=== PATIENT | female | born 1960 | race Caucasian/White ===

== ENCOUNTER 2020-09-27 16:51 | Outpatient (CLI) | payer MEDICARE, MEDICAID | END 2020-09-27 16:52 | disposition home or self-care (01) | LOC: COV 16:51 | PROVIDERS: ATTEND Family Medicine | DX: R53.83 Other fatigue (principal); Z20.828 Contact with and (suspected) exposure to other viral communicable diseases ==

== ENCOUNTER 2020-10-25 08:00 | Outpatient (CLI) | payer MEDICARE, MEDICAID ==
--- NOTE | 2020-10-25 10:44 | XRAY Report ---
PROCEDURE: Ankle 3 View RT INDICATIONS: R ANKLE PX TECHNIQUE: 3 views of the ankle were acquired. COMPARISON: 09/27/2020 FINDINGS: Bones: No fracture identified. Diffuse hindfoot and midfoot joint degeneration, with subchondral scle rosis and spurring. There is plantar subluxation of the talus relative to the navicular. Distal Achil les tendon thickening IMPRESSION: Diffuse hindfoot and midfoot joint degeneration with talonavicular subluxation as above Distal Achilles tendon thickening which could be further evaluated with MRI as clinically necessary. Reviewed by: Landen Doherty MD on 10/25/2020 10:43 AM PST Approved by: Landen Doherty MD on 10/25/2020 10:43 AM PST Station ID: [id number]
== END 2020-10-25 23:59 | disposition home or self-care (01) ==
LOC: DI.N 08:00
PROVIDERS: ATTEND Orthopaedic Surgery
DX: M25.571 Pain in right ankle and joints of right foot (principal); M19.071 Primary osteoarthritis, right ankle and foot

== ENCOUNTER 2022-07-04 14:08 | Outpatient (CLI) | payer MEDICARE, MEDICAID ==
--- NOTE | 2022-07-05 10:29 | Mammography Report ---
BILATERAL DIGITAL SCREENING MAMMOGRAM 3D/2D: 07/04/2022 CLINICAL: Routine screening. Comparison is made to exam dated: 04/24/2014 mammogram - [facility]. There are scattered areas of fibroglandular density in both breasts (category b / 25%-50% glandular t issue). No significant masses, calcifications, or other findings are seen in either breast. There has been no significant interval change. IMPRESSION: NEGATIVE There is no mammographic evidence of malignancy. A 1 year screening mammogram is recommended. Based on the Tyrer Cuzick model (a risk assessment model) the patients lifetime risk is 6.9% and her 10 year risk is 2.8%. According to the ACR, ACS, and NCCN guidelines, an annual breast MRI exam odette g with mammogram is recommended if the patients lifetime risk is 20% or greater. This exam was interpreted at Station ID: [id number]. NOTE: For mammograms, a report in lay terms will be sent to the patient. Approximately 15% of breast malignancies will not be visualized mammographically. In the management of a palpable breast mass, a negative mammogram must not discourage biopsy of a clinically suspicious lesion. Electronically Signed By: Salvador Rosa M.D. aty/penrad:07/05/2022 08:36:23 ACR BI-RADS Category 1: Negative 3341F PARENCHYMAL PATTERN: (A) - The breast(s) demonstrate(s) scattered fibroglandular densities. BI-RADS CATEGORY: (1) - 1 RECOMMENDATION: (ANNUAL) - Recommend routine annual screening mammography. [id number] 1 year screening LATERALITY: (B)
== END 2022-07-04 14:09 | disposition home or self-care (01) ==
LOC: DI 14:08
DX: Z12.31 Encounter for screening mammogram for malignant neoplasm of breast (principal)

== ENCOUNTER 2022-08-23 08:15 | Outpatient (CLI) | payer MEDICARE, MEDICAID ==
[2022-08-23 11:51] LABS: BASOPHILS # (AUTO) 0.1 10^3/uL (0.0-0.1); BASOPHILS % (AUTO) 1.2 %; EOSINOPHILS # (AUTO) 0.2 10^3/uL (0.0-0.7); EOSINOPHILS % (AUTO) 3.7 %; HCT - HEMATOCRIT 37.2 % (37.0-47.0); HGB - HEMOGLOBIN 11.4 g/dL (12.0-16.0); LYMPHOCYTES # (AUTO) 1.4 10^3/uL (1.5-3.5); LYMPHOCYTES % (AUTO) 20.9 %; MEAN CORPUSCULAR HEMOGLOBIN 24.4 pg (27.0-31.0); MEAN CORPUSCULAR HGB CONC 30.6 g/dL (32.0-36.0); MEAN CORPUSCULAR VOLUME 79.7 fL (81.0-99.0); MEAN PLATELET VOLUME 9.9 fL (7.9-10.8); MONOCYTES # (AUTO) 0.5 10^3/uL (0.0-1.0); MONOCYTES % (AUTO) 7.5 %; NEUTROPHILS # (AUTO) 4.3 10^3/uL (1.5-6.6); NEUTROPHILS % (AUTO) 66.1 %; PLT - PLATELET COUNT 482 10^3/uL (130-450); RED BLOOD COUNT 4.67 10^6/uL (4.20-5.40); RED CELL DISTRIBUTION WIDTH 15.4 % (12.0-15.0); WHITE BLOOD COUNT 6.6 x10^3/uL (4.8-10.8)
[2022-08-23 12:21] LABS: ALKALINE PHOSPHATASE 78 IU/L (42-121); ALT ALANINE AMINOTRANSFERASE 22 IU/L (10-60); AST ASPARTATE AMINOTRANSFERASE 21 IU/L (10-42); BILIRUBIN,TOTAL 0.8 mg/dL (0.2-1.0); BUN - BLOOD UREA NITROGEN 28 mg/dL (6-20); CALCIUM 10.7 mg/dL (8.5-10.3); CARBON DIOXIDE - CO2 26 mmol/L (21-32); CHLORIDE 104 mmol/L (101-111); CHOL/HDL RATIO 3.2 (<4.4); CHOLESTEROL 155 mg/dL; CREATININE 1.4 mg/dL (0.4-1.0); GFR - MDRD 38 (>89); GLUCOSE 94 mg/dL (70-100); HDL CHOLESTEROL 49 mg/dL; LDL CHOLESTEROL,CALCULATED 96 mg/dL; POTASSIUM 3.9 mmol/L (3.5-5.0); SODIUM 140 mmol/L (135-145); TRIGLYCERIDES 51 mg/dL; VLDL CHOLESTEROL 10 mg/dL
[2022-08-23 12:28] LABS: THYROID STIMULATING HORMONE 2.91 uIU/mL (0.34-5.60)
== END 2022-08-23 08:16 | disposition home or self-care (01) ==
LOC: LAB.N 08:15
PROVIDERS: ATTEND Physician Assistant
DX: R03.0 Elevated blood-pressure reading, without diagnosis of hypertension (principal); Z13.220 Encounter for screening for lipoid disorders; Z13.29 Encounter for screening for other suspected endocrine disorder; E66.9 Obesity, unspecified
CPT/HCPCS: 36415; 80053; 80061; 83721; 84443; 85025

== ENCOUNTER 2022-09-04 08:06 | Outpatient (CLI) | payer MEDICARE, MEDICAID ==
[2022-09-04 12:24] LABS: BILIRUBIN,URINE NEGATIVE (NEGATIVE); GLUCOSE, URINE (UA) NEGATIVE (NEGATIVE); KETONES,URINE (UA) NEGATIVE (NEGATIVE); LEUKOCYTE ESTERASE, URINE LARGE (NEGATIVE); NITRITE,URINE NEGATIVE (NEGATIVE); OCCULT BLOOD,URINE MODERATE (NEGATIVE); PROTEIN,URINE 30 mg/dL (NEGATIVE); UROBILINOGEN,URINE 0.2 (NORMAL) E.U./dL (NORMAL)
[2022-09-04 12:42] LABS: BACTERIA,URINE Few /HPF (None Seen); CLARITY,URINE CLOUDY (CLEAR); SQUAMOUS EPITHELIAL CELL,UR MOD Squamous (<= Few); WBC,URINE >25 /HPF (0-5)
[2022-09-04 12:53] LABS: FERRITIN 5.3 ng/mL (11.0-306.8)
[2022-09-04 14:34] LABS: CREATININE 1.3 mg/dL (0.4-1.0); POTASSIUM 3.7 mmol/L (3.5-5.0)
[2022-09-04 14:35] LABS: CALCIUM 10.6 mg/dL (8.5-10.3)
== END 2022-09-04 08:07 | disposition home or self-care (01) ==
LOC: LAB.N 08:06
PROVIDERS: ATTEND Physician Assistant
DX: R79.89 Other specified abnormal findings of blood chemistry (principal); D64.9 Anemia, unspecified; E83.52 Hypercalcemia
CPT/HCPCS: 36415; 80048; 81001; 82728; 83540; 83970; 84466

== ENCOUNTER 2022-09-14 06:41 | Outpatient (CLI) | payer MEDICARE, MEDICAID ==
--- NOTE | 2022-09-14 10:44 | Ultrasound Report ---
PROCEDURE: Retroperitoneal INDICATIONS: PROTEINURIA TECHNIQUE: Real-time scanning was performed of the retroperitoneal organs, with image documentation. COMPARISON: None. FINDINGS: Kidneys: Kidneys are normal in size. Right kidney measures 9.4 cm long; left kidney measures 9.0 cm long. Right renal cortical thickness is 0.6 cm; left renal cortical thickness is 0.7 cm. There is a 1.1 x 1.0 x 0.8 cm cyst in mid left kidney with mild wall irregularity. No solid masses. No hydrone phrosis, or nephrolithiasis. Pancreas: Visualized portions of the pancreas are sonographically normal. Aorta: Visualized aorta is normal in caliber at 3 cm or less. Iliac arteries: Proximal common iliac arteries are normal in caliber at 2.5 cm or less. IVC: Intrahepatic inferior vena cava is patent. Bladder: Pre-void bladder volume is 384.8 mL. Post-void residual is 124.1 mL. Pre-void images demo nstrate no intraluminal masses or stones. On pre-void images, both ureteral jets are noted with colo r Doppler interrogation. (Of note, ureteral jets may not be detectable in up to 25% of cases due to insufficient differences in specific gravity between ureteral and bladder urine). Miscellaneous: No free abdominal fluid. IMPRESSION: 1. There is bilateral renal cortical thinning compatible with medical renal disease. No renal stones or hydronephrosis. 2. A 1.1 x 1.0 x 0.8 cm mildly complex cyst in the left kidney. Reviewed by: Vanessa Monteiro MD on 09/14/2022 10:43 AM [facility] Approved by: Vanessa Monteiro MD on 09/14/2022 10:43 AM PST Station ID: [id number]
== END 2022-09-14 06:42 | disposition home or self-care (01) ==
LOC: DI 06:41
PROVIDERS: ATTEND Physician Assistant
DX: N28.1 Cyst of kidney, acquired (principal); N26.1 Atrophy of kidney (terminal)

== ENCOUNTER 2022-12-26 15:53 | Outpatient (CLI) | payer MEDICARE, MEDICAID ==
--- NOTE | 2022-12-26 19:48 | XRAY Report ---
PROCEDURE: Ankle 3 View RT INDICATIONS: RIGHT ANKLE PAIN TECHNIQUE: 3 views of the ankle were acquired. COMPARISON: Right ankle radiographs 10/25/2020 FINDINGS: Bones: There is osteopenia. There is dorsal subluxation of the tibiotalar joint that does not appear significantly changed when compared with radiographs from 10/25/2020. 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 No acute fractures. Ankle mortise is normally aligned. No suspicious bony lesions. Soft tissues: Nonspecific soft tissue edema seen surrounding the ankle. IMPRESSION: 1.Dorsal subluxation of the talonavicular joint does not appear significantly changed when compared t o the exam from 10/25/2020. 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 3.Nonspecific diffuse soft tissue edema. Reviewed by: Magen Shannon MD on 12/26/2022 7:46 PM PST Approved by: Magen Shannon MD on 12/26/2022 7:46 PM PST Station ID: [id number]
== END 2022-12-26 15:54 | disposition home or self-care (01) ==
LOC: DI.WOS 15:53
PROVIDERS: ATTEND Physician Assistant Surgical
DX: Q66.6 Other congenital valgus deformities of feet (principal); S93.01XA Subluxation of right ankle joint, initial encounter

== ENCOUNTER 2023-01-04 07:35 | Outpatient (CLI) | payer MEDICARE, MEDICAID ==
[2023-01-04 12:33] LABS: CALCIUM 10.9 mg/dL (8.5-10.3); CREATININE 1.1 mg/dL (0.4-1.0); PHOSPHORUS 3.3 mg/dL (2.5-4.6); POTASSIUM 3.8 mmol/L (3.5-5.0)
[2023-01-04 13:17] LABS: CREATININE,URINE 79.8 mg/dL; PROTEIN/CREATININE RATIO,URINE 0.7 (<=0.2)
== END 2023-01-04 07:36 | disposition home or self-care (01) ==
LOC: LAB.N 07:35
PROVIDERS: ATTEND Internal Medicine Nephrology
DX: N05.9 Unspecified nephritic syndrome with unspecified morphologic changes (principal); E83.30 Disorder of phosphorus metabolism, unspecified; R80.9 Proteinuria, unspecified
CPT/HCPCS: 36415; 80048; 82570; 84100; 84156

== ENCOUNTER 2023-01-11 09:20 | Outpatient (CLI) | payer MEDICARE, MEDICAID ==
[2023-01-15 16:08] LABS: ALBUMIN 3.3 g/dL (2.9-4.4); ALPHA-1-GLOBULIN 0.3 g/dL (0.0-0.4); ALPHA-2-GLOBULIN 0.8 g/dL (0.4-1.0); BETA GLOBULIN 1.1 g/dL (0.7-1.3); GAMMA GLOBULIN 1.3 g/dL (0.4-1.8); GLOBULIN TOTAL 3.5 g/dL (2.2-3.9); IMMUNOGLOBULIN A (IGA) 206 mg/dL (87-352); IMMUNOGLOBULIN G (IGG) 1204 mg/dL (586-1602); IMMUNOGLOBULIN M (IGM) 171 mg/dL (26-217); M-SPIKE Not Observed g/dL (Not Observed); PROTEIN TOTAL 6.8 g/dL (6.0-8.5)
== END 2023-01-11 09:21 | disposition home or self-care (01) ==
LOC: LAB 09:20
PROVIDERS: ATTEND Internal Medicine Nephrology
DX: N25.81 Secondary hyperparathyroidism of renal origin (principal); E67.3 Hypervitaminosis D; D47.2 Monoclonal gammopathy
CPT/HCPCS: 36415; 82306; 82784; 83970; 84155; 84165; 86334

== ENCOUNTER 2023-05-21 08:32 | Outpatient (CLI) | payer MEDICARE, MEDICAID ==
[2023-05-21 12:42] LABS: BASOPHILS # (AUTO) 0.1 10^3/uL (0.0-0.1); BASOPHILS % (AUTO) 0.9 %; EOSINOPHILS # (AUTO) 0.2 10^3/uL (0.0-0.7); EOSINOPHILS % (AUTO) 3.4 %; HCT - HEMATOCRIT 40.1 % (37.0-47.0); HGB - HEMOGLOBIN 11.4 g/dL (12.0-16.0); LYMPHOCYTES # (AUTO) 1.7 10^3/uL (1.5-3.5); LYMPHOCYTES % (AUTO) 24.4 %; MEAN CORPUSCULAR HEMOGLOBIN 22.7 pg (27.0-31.0); MEAN CORPUSCULAR HGB CONC 28.4 g/dL (32.0-36.0); MEAN CORPUSCULAR VOLUME 79.7 fL (81.0-99.0); MEAN PLATELET VOLUME 11.4 fL (7.9-10.8); MONOCYTES # (AUTO) 0.7 10^3/uL (0.0-1.0); MONOCYTES % (AUTO) 10.4 %; NEUTROPHILS # (AUTO) 4.1 10^3/uL (1.5-6.6); NEUTROPHILS % (AUTO) 60.5 %; PLT - PLATELET COUNT 441 10^3/uL (130-450); RED BLOOD COUNT 5.03 10^6/uL (4.20-5.40); RED CELL DISTRIBUTION WIDTH 16.5 % (12.0-15.0); WHITE BLOOD COUNT 6.8 x10^3/uL (4.8-10.8)
[2023-05-21 13:07] LABS: CALCIUM 10.4 mg/dL (8.5-10.3); CREATININE 1.1 mg/dL (0.6-1.3); POTASSIUM 4.2 mmol/L (3.5-4.5)
== END 2023-05-21 08:33 | disposition home or self-care (01) ==
LOC: LAB.N 08:32
PROVIDERS: ATTEND Internal Medicine Nephrology
DX: N05.9 Unspecified nephritic syndrome with unspecified morphologic changes (principal); D70.9 Neutropenia, unspecified; D63.1 Anemia in chronic kidney disease
CPT/HCPCS: 36415; 80048; 85025

== ENCOUNTER 2024-06-02 08:45 | Outpatient (CLI) | payer MEDICARE, MEDICAID ==
--- NOTE | 2024-06-02 16:12 | XRAY Report ---
PROCEDURE: Tib/Fib LT INDICATIONS: PAIN IN LEFT LOWER LIMB TECHNIQUE: 2 views of the tibia and fibula were acquired. COMPARISON: Ankle x-ray 12/26/2022. FINDINGS: Bones: Severe osteopenia limits evaluation of the osseous structures. Grossly no fracture or subluxa tion seen. Calcaneus cannot be evaluated in this study. Soft tissues: 5 mm soft tissue calcification of the posterior calf IMPRESSION: 1. No acute osseous abnormality seen.. 2. A 5 mm soft tissue calcification of the posterior calf possibly related to prior trauma. Radiopaqu e foreign body is less likely. Reviewed by: Jag King MD on 06/02/2024 4:11 PM PDT Approved by: Jag King MD on 06/02/2024 4:11 PM PDT Station ID: [id number]
--- NOTE | 2024-06-02 16:29 | XRAY Report ---
PROCEDURE: Ankle 3+V LT INDICATIONS: ANKLE PAIN, LEFT TECHNIQUE: 2 views of the ankle were acquired. COMPARISON: None. FINDINGS: Bones: Severe osteopenia. No acute fracture or subluxation identified. Ankle mortise appears intact. Soft tissues: Soft tissue swelling of the lateral ankle. Soft tissue calcification projects over the posterior ankle. This could be the result of old trauma. Radiopaque foreign body is less likely. IMPRESSION: Severe osteopenia somewhat limiting evaluation of osseous structures with no acute fracture discernib le. Severe soft tissue swelling of the lateral ankle. Reviewed by: Jag King MD on 06/02/2024 4:28 PM PDT Approved by: Jag King MD on 06/02/2024 4:28 PM PDT Station ID: [id number]
--- NOTE | 2024-06-02 16:35 | XRAY Report ---
PROCEDURE: Foot 1-2V LT INDICATIONS: FOOT PAIN, LEFT TECHNIQUE: 2views of the foot were acquired. COMPARISON: None. FINDINGS: Bones: Severe osteopenia limits evaluation of osseous structures. No acute fracture subluxation ident ified. Soft tissues: Diffuse soft tissue swelling of the foot. IMPRESSION: Severe osteopenia. No acute fracture subluxation seen. Diffuse soft tissue swelling of the foot. Reviewed by: Jag King MD on 06/02/2024 4:34 PM PDT Approved by: Jag King MD on 06/02/2024 4:34 PM PDT Station ID: [id number]
== END 2024-06-02 09:00 | disposition home or self-care (01) ==
LOC: DI.N 08:45
PROVIDERS: ATTEND Physician Assistant Medical
DX: M85.872 Other specified disorders of bone density and structure, left ankle and foot (principal); M79.605 Pain in left leg; M25.572 Pain in left ankle and joints of left foot; M79.672 Pain in left foot

== ENCOUNTER 2024-07-22 09:05 | Outpatient (CLI) | payer MEDICARE, MEDICAID ==
--- NOTE | 2024-07-23 11:00 | Mammography Report ---
BILATERAL DIGITAL SCREENING MAMMOGRAM 3D/2D: 07/22/2024 CLINICAL: Routine screening. Comparison is made to exams dated: 07/04/2022 mammogram and 04/24/2014 mammogram - [facility]. There are scattered areas of fibroglandular density (category b / 25%-50% glandular tissue). No significant masses, calcifications, or other findings are seen in either breast. There has been no significant interval change. IMPRESSION: NEGATIVE There is no mammographic evidence of malignancy. A 1 year screening mammogram is recommended. Based on the Tyrer Cuzick model (a risk assessment model) the patient's lifetime risk is 6.6% and her 10 year risk is 2.8%. According to the ACR, ACS, and NCCN guidelines, an annual breast MRI exam odette g with mammogram is recommended if the patient's lifetime risk is 20% or greater. This exam was interpreted at Station ID: [id number]. NOTE: For mammograms, a report in lay terms will be sent to the patient. Approximately 15% of breast malignancies will not be visualized mammographically. In the management of a palpable breast mass, a negative mammogram must not discourage biopsy of a clinically suspicious lesion. Electronically Signed By: Sharad [email or web address]/lelo:07/22/2024 14:37:42 letter sent: No_Letter ACR BI-RADS Category 1: Negative PARENCHYMAL PATTERN: (A) - The breast(s) demonstrate(s) scattered fibroglandular densities. BI-RADS CATEGORY: (1) - 1 RECOMMENDATION: (ANNUAL) - Recommend routine annual screening mammography. [id number] 1 year screening LATERALITY: (B)
== END 2024-07-22 09:06 | disposition home or self-care (01) ==
LOC: DI 09:05
DX: Z12.31 Encounter for screening mammogram for malignant neoplasm of breast (principal)